=== PATIENT | female | born 1985 | race Caucasian/White ===

== ENCOUNTER 2017-07-15 14:43 | Outpatient (CLI) | END 2017-07-15 16:20 | disposition home or self-care (01) ==

== ENCOUNTER 2017-07-16 17:50 | Outpatient (CLI) | END 2017-07-16 20:23 | disposition home or self-care (01) ==

== ENCOUNTER 2017-07-30 15:50 | Inpatient (IN) | END 2017-08-01 17:22 | disposition home or self-care (01) | DRG 775 ==